=== PATIENT | male | born 1965 | race American Indian/Alaskan Native ===

== ENCOUNTER 2016-10-01 12:56 | Emergency (ER) | payer SELFPAY ==
--- NOTE | 2016-10-01 13:12 | Emergency Department Report ---
Chief Complaint: Hyperglycemia Stated Complaint: NAUSEA/VOMITING/DIABETIC Time Seen by Provider: 10/01/16 13:09 - HPI History of Present Illness: PT states his insulin is not working. PT's states she was out of town and when she returned this morning Vertice has lost 30lbs. Pt's states his blood sugar was running high. - ROS Review of Systems: + nausea + urinary frequency - pain - Exam Physical Exam: pt looks non toxic, appears nauseated. insulin pump noted. MSE screening note: Focused history and physical exam performed. Due to findings the following was ordered: lab work ED Disposition for MSE Condition: Stable
[2016-10-01 13:48] LABS: Basophils % (Auto) 0.4 % (0.0-1.8); Hematocrit 39.7 % (35.5-45.6); Mean Corpuscular HGB Conc 33 % (32-34); Mean Corpuscular Hemoglobin 29 pg (28-32); Mean Corpuscular Volume 87 fl (84-94); Platelet Count 222 K/mm3 (140-440); Red Blood Count 4.55 M/mm3 (3.65-5.03); Red Cell Distribution Width 15.5 % (13.2-15.2); White Blood Count 9.5 K/mm3 (4.5-11.0)
[2016-10-01 13:52] LABS: Albumin 3.8 g/dL (3.9-5); Albumin/Globulin Ratio 1.2 %; BUN/Creatinine Ratio 28.57; Bilirubin,Total 0.7 mg/dL (0.1-1.2); Calcium 9.6 mg/dL (8.4-10.2); Potassium 4.7 mmol/L (3.6-5.0); Total Protein 7.1 g/dL (6.3-8.2)
[2016-10-01 14:33] LABS: Bilirubin,Urine NEG (Negative); Blood,Urine NEG (Negative); Ketones,Urine TR mg/dL (Negative); Leukocyte Esterase,Urine NEG (Negative); Mucus,Urine FEW /HPF; Nitrite,Urine NEG (Negative); Urobilinogen,Urine < 2.0 mg/dL (<2.0)
[2016-10-02] MEDS ORDERED: NACL 0.9% 1000 ML 1,000 ML IV ONE (06:27)
[2016-10-02 07:02] LABS: BUN/Creatinine Ratio 25.88; Calcium 10.2 mg/dL (8.4-10.2); Chloride 97.2 mmol/L (98-107)
[2016-10-02 07:08] LABS: Potassium 5.8 mmol/L (3.6-5.0)
--- NOTE | 2016-10-02 08:11 | XRay Report ---
AP CHEST :10/01/16 12:56:00 CLINICAL: Hypoglycemia and weight loss. COMPARISON:None. FINDINGS: Normal heart and pulmonary vasculature. The lungs are normally expanded and clear. The bones and soft tissues are normal. IMPRESSION: Normal chest.
--- NOTE | 2016-10-02 08:22 | Emergency Department Report ---
ED General Adult HPI - General Chief complaint: Hyperglycemia Stated complaint: NAUSEA/VOMITING/DIABETIC Time Seen by Provider: 10/01/16 13:09 Source: patient, RN notes reviewed Mode of arrival: Wheelchair Limitations: No Limitations - History of Present Illness Initial comments: This is a 51-year-old male. He is previously unknown to me. His primary care doctor is at the [facility]. The patient has a history of high cholesterol and hypertension, and insulin-dependent diabetes, and has a programmable right-sided insulin pump. He reports that his fingersticks are typically less than 200. He reports that for the past 10 days, his fingersticks have been running in the 3 to 400s. He was initially nauseous and vomiting, but this has since resolved. His symptoms resolved with administration of IV fluids. He denies headache, neck pain, chest pain, abdominal pain, shortness of breath, irritative and obstructive urinary symptoms. He reports compliance with his outpatient medications, and he denies dietary indiscretions. -: Gradual Consistency: now resolved Improves with: medication Worsens with: none Associated Symptoms: nausea/vomiting (now resolved) - Related Data Home Medications Medication Instructions Recorded Confirmed Last Taken Aspirin EC [Aspirin Enteric Coated 81 mg PO QDAY 10/02/16 10/02/16 Unknown TAB] AtorvaSTATin [Lipitor] 40 mg PO QHS 10/02/16 10/02/16 Unknown Insulin Pump Syringe, 1.8 ml 1.25 unit SQ CONT 10/02/16 10/02/16 Unknown Lisinopril [Zestril] 20 mg PO QDAY 10/02/16 10/02/16 Unknown Allergies Allergy/AdvReac Type Severity Reaction Status Date / Time No Known Allergies Allergy Verified 10/01/16 13:14 ED Review of Systems ROS: Stated complaint: NAUSEA/VOMITING/DIABETIC Other details as noted in HPI Constitutional: malaise. denies: fever Eyes: denies: vision change ENT: denies: epistaxis Respiratory: denies: cough Cardiovascular: denies: chest pain Gastrointestinal: nausea, vomiting Genitourinary: as per HPI. denies: dysuria Musculoskeletal: as per HPI Skin: as per HPI Neurological: as per HPI, weakness ED Past Medical Hx - Past Medical History Previous Medical History?: Yes Hx Hypertension: Yes Hx Diabetes: Yes - Surgical History Past Surgical History?: Yes Additional Surgical History: neck - Social History Smoking Status: Never Smoker Substance Use Type: None - Medications Home Medications: Home Medications Medication Instructions Recorded Confirmed Last Taken Type Aspirin EC [Aspirin Enteric Coated 81 mg PO QDAY 10/02/16 10/02/16 Unknown History TAB] AtorvaSTATin [Lipitor] 40 mg PO QHS 10/02/16 10/02/16 Unknown History Insulin Pump Syringe, 1.8 ml 1.25 unit SQ CONT 10/02/16 10/02/16 Unknown History Lisinopril [Zestril] 20 mg PO QDAY 10/02/16 10/02/16 Unknown History ED Physical Exam - General Limitations: No Limitations General appearance: alert, in no apparent distress - Head Head exam: Present: atraumatic, normocephalic - Eye Eye exam: Present: normal appearance, EOMI. Absent: nystagmus - ENT ENT exam: Present: normal exam, normal orophraynx, mucous membranes moist, normal external ear exam - Neck Neck exam: Present: normal inspection, full ROM. Absent: tenderness, meningismus - Respiratory Respiratory exam: Present: normal lung sounds bilaterally. Absent: respiratory distress, wheezes, rales, rhonchi, stridor, chest wall tenderness, accessory muscle use, decreased breath sounds, prolonged expiratory - Cardiovascular Cardiovascular Exam: Present: regular rate, normal rhythm, normal heart sounds. Absent: bradycardia, tachycardia, irregular rhythm, systolic murmur, diastolic murmur, rubs, gallop - GI/Abdominal GI/Abdominal exam: Present: soft, normal bowel sounds. Absent: distended, tenderness, guarding, rebound, rigid, pulsatile mass - Rectal Rectal exam: Present: deferred - Extremities Exam Extremities exam: Present: normal inspection, normal capillary refill. Absent: calf tenderness - Back Exam Back exam: Present: normal inspection, full ROM. Absent: tenderness, CVA tenderness (R), CVA tenderness (L), muscle spasm, paraspinal tenderness, vertebral tenderness - Neurological Exam Neurological exam: Present: alert, oriented X3, normal gait, other (Extraocular movements intact. Tongue midline. No facial droop. Facial sensation intact to light touch in the V1, V2, V3 distribution bilaterally. 5 and 5 strength in 4 extremities.. Sensation is intact to light touch in 4 extremities.). Absent : motor sensory deficit - Psychiatric Psychiatric exam: Present: normal affect, normal mood - Skin Skin exam: Present: warm, dry, intact, normal color, other (insulin pump as noted in the right lower quadrant, no redness, pus or streaking). Absent: rash ED Course Vital Signs 10/01/16 10/02/16 10/02/16 13:09 05:06 06:18 Temperature 97.9 F 98.3 F Pulse Rate 80 119 H 88 Respiratory 18 20 10 L Rate Blood Pressure 173/96 Blood Pressure 185/109 [Right] O2 Sat by Pulse 100 100 97 Oximetry 10/02/16 10/02/16 10/02/16 06:31 07:01 07:30 Temperature Pulse Rate 79 98 H 91 H Respiratory 19 16 20 Rate Blood Pressure 194/102 194/102 167/96 Blood Pressure [Right] O2 Sat by Pulse 97 98 98 Oximetry 10/02/16 10/02/16 10/02/16 08:00 08:31 09:00 Temperature Pulse Rate 88 88 79 Respiratory 17 15 15 Rate Blood Pressure 175/103 175/103 147/86 Blood Pressure [Right] O2 Sat by Pulse 96 96 97 Oximetry - Reevaluation(s) Reevaluation #1: 10/02/16 09:03 Differential diagnosis: Diabetic ketoacidosis, hyperosmolar state, dehydration, renal insufficiency, UTI, pneumonia Assessment and plan: 51-year-old male with hyperglycemia, now resolved. He is afebrile with reassuring vital signs, with the exception of a symptomatically hypertensive/elevated blood pressure. This can be followed up by primary care doctor. His glucose has improved, a urinalysis and chest x-ray are not consistent with infectious etiology. Patient is most likely developing insulin resistance. Laboratory studies demonstrated mild renal insufficiency and hyperkalemia. A repeat basic metabolic panel is pending. Reevaluation #2: 10/02/16 09:05 repeat basic metabolic panel improved. Patient resting comfortably. Patient will be discharged. ED Medical Decision Making - Lab Data Result diagrams: 10/01/16 13:10/02/16 08:30 Vital Signs 10/01/16 10/02/16 10/02/16 13:09 05:06 06:18 Temperature 97.9 F 98.3 F Pulse Rate 80 119 H 88 Respiratory 18 20 10 L Rate Blood Pressure 173/96 Blood Pressure 185/109 [Right] O2 Sat by Pulse 100 100 97 Oximetry 10/02/16 10/02/16 10/02/16 06:31 07:01 07:30 Temperature Pulse Rate 79 98 H 91 H Respiratory 19 16 20 Rate Blood Pressure 194/102 194/102 167/96 Blood Pressure [Right] O2 Sat by Pulse 97 98 98 Oximetry 10/02/16 10/02/16 08:00 08:31 Temperature Pulse Rate 88 88 Respiratory 17 15 Rate Blood Pressure 175/103 175/103 Blood Pressure [Right] O2 Sat by Pulse 96 96 Oximetry Lab Results 10/01/16 10/01/16 10/01/16 Range/Units 13:05 13:17 13:17 WBC 9.5 (4.5-11.0) K/mm3 RBC 4.55 (3.65-5.03) M/mm3 Hgb 13.0 (11.8-15.2) gm/dl Hct 39.7 (35.5-45.6) % MCV 87 (84-94) fl MCH 29 (28-32) pg MCHC 33 (32-34) % RDW 15.5 H (13.2-15.2) % Plt Count 222 (140-440) K/mm3 Lymph % (Auto) 8.2 L (13.4-35.0) % [place] % (Auto) 6.9 (0.0-7.3) % Eos % (Auto) 0.0 (0.0-4.3) % Baso % (Auto) 0.4 (0.0-1.8) % Lymph # 0.8 L (1.2-5.4) K/mm3 [place] # 0.7 (0.0-0.8) K/mm3 Eos # 0.0 (0.0-0.4) K/mm3 Baso # 0.0 (0.0-0.1) K/mm3 Seg Neutrophils % 84.5 H (40.0-70.0) % Seg Neutrophils # 8.1 H (1.8-7.7) K/mm3 VBG pH (7.320-7.420) Sodium 140 (137-145) mmol/L Potassium 4.7 (3.6-5.0) mmol/L Chloride 100.0 (98-107) mmol/L Carbon Dioxide 27 (22-30) mmol/L Anion Gap 18 mmol/L BUN 40 H (9-20) mg/dL Creatinine 1.4 (0.8-1.5) mg/dL Estimated GFR 53 ml/min BUN/Creatinine Ratio 28.57 % Glucose 317 H (75-100) mg/dL POC Glucose 303 H (70-105) Calcium 9.6 (8.4-10.2) mg/dL Total Bilirubin 0.70 (0.1-1.2) mg/dL AST 33 (5-40) units/L ALT 34 (7-56) units/L Alkaline Phosphatase 83 (35-129) units/L Total Protein 7.1 (6.3-8.2) g/dL Albumin 3.8 L (3.9-5) g/dL Albumin/Globulin Ratio 1.2 % Lipase (13-60) units/L Urine Color (Yellow) Urine Turbidity (Clear) Urine pH (5.0-7.0) Ur Specific [place] (1.003-1.030) Urine Protein (Negative) mg/dL Urine Glucose (UA) (Negative) mg/dL Urine Ketones (Negative) mg/dL Urine Blood (Negative) Urine Nitrite (Negative) Urine Bilirubin (Negative) Urine Urobilinogen (<2.0) mg/dL Ur Leukocyte Esterase (Negative) Urine WBC (Auto) (0.0-6.0) /HPF Urine RBC (Auto) (0.0-6.0) /HPF Urine Mucus /HPF 10/01/16 10/01/16 10/01/16 Range/Units 13:17 13:17 14:04 WBC (4.5-11.0) K/mm3 RBC (3.65-5.03) M/mm3 Hgb (11.8-15.2) gm/dl Hct (35.5-45.6) % MCV (84-94) fl MCH (28-32) pg MCHC (32-34) % RDW (13.2-15.2) % Plt Count (140-440) K/mm3 Lymph % (Auto) (13.4-35.0) % [place] % (Auto) (0.0-7.3) % Eos % (Auto) (0.0-4.3) % Baso % (Auto) (0.0-1.8) % Lymph # (1.2-5.4) K/mm3 [place] # (0.0-0.8) K/mm3 Eos # (0.0-0.4) K/mm3 Baso # (0.0-0.1) K/mm3 Seg Neutrophils % (40.0-70.0) % Seg Neutrophils # (1.8-7.7) K/mm3 VBG pH 7.399 (7.320-7.420) Sodium (137-145) mmol/L Potassium (3.6-5.0) mmol/L Chloride (98-107) mmol/L Carbon Dioxide (22-30) mmol/L Anion Gap mmol/L BUN (9-20) mg/dL Creatinine (0.8-1.5) mg/dL Estimated GFR ml/min BUN/Creatinine Ratio % Glucose (75-100) mg/dL POC Glucose (70-105) Calcium (8.4-10.2) mg/dL Total Bilirubin (0.1-1.2) mg/dL AST (5-40) units/L ALT (7-56) units/L Alkaline Phosphatase (35-129) units/L Total Protein (6.3-8.2) g/dL Albumin (3.9-5) g/dL Albumin/Globulin Ratio % Lipase 19 (13-60) units/L Urine Color Yellow (Yellow) Urine Turbidity Clear (Clear) Urine pH 5.0 (5.0-7.0) Ur Specific [place] 1.014 (1.003-1.030) Urine Protein 100 mg/dl (Negative) mg/dL Urine Glucose (UA) >=500 (Negative) mg/dL Urine Ketones Tr (Negative) mg/dL Urine Blood Neg (Negative) Urine Nitrite Neg (Negative) Urine Bilirubin Neg (Negative) Urine Urobilinogen < 2.0 (<2.0) mg/dL Ur Leukocyte Esterase Neg (Negative) Urine WBC (Auto) 1.0 (0.0-6.0) /HPF Urine RBC (Auto) 2.0 (0.0-6.0) /HPF Urine Mucus Few /HPF 10/02/16 10/02/16 10/02/16 Range/Units 05:02 06:34 07:37 WBC (4.5-11.0) K/mm3 RBC (3.65-5.03) M/mm3 Hgb (11.8-15.2) gm/dl Hct (35.5-45.6) % MCV (84-94) fl MCH (28-32) pg MCHC (32-34) % RDW (13.2-15.2) % Plt Count (140-440) K/mm3 Lymph % (Auto) (13.4-35.0) % [place] % (Auto) (0.0-7.3) % Eos % (Auto) (0.0-4.3) % Baso % (Auto) (0.0-1.8) % Lymph # (1.2-5.4) K/mm3 [place] # (0.0-0.8) K/mm3 Eos # (0.0-0.4) K/mm3 Baso # (0.0-0.1) K/mm3 Seg Neutrophils % (40.0-70.0) % Seg Neutrophils # (1.8-7.7) K/mm3 VBG pH (7.320-7.420) Sodium 138 (137-145) mmol/L Potassium 5.8 H D (3.6-5.0) mmol/L Chloride 97.2 L (98-107) mmol/L Carbon Dioxide 27 (22-30) mmol/L Anion Gap 20 mmol/L BUN 44 H (9-20) mg/dL Creatinine 1.7 H (0.8-1.5) mg/dL Estimated GFR 51 ml/min BUN/Creatinine Ratio 25.88 % Glucose 369 H (75-100) mg/dL POC Glucose 418 H 283 H (70-105) Calcium 10.2 (8.4-10.2) mg/dL Total Bilirubin (0.1-1.2) mg/dL AST (5-40) units/L ALT (7-56) units/L Alkaline Phosphatase (35-129) units/L Total Protein (6.3-8.2) g/dL Albumin (3.9-5) g/dL Albumin/Globulin Ratio % Lipase (13-60) units/L Urine Color (Yellow) Urine Turbidity (Clear) Urine pH (5.0-7.0) Ur Specific [place] (1.003-1.030) Urine Protein (Negative) mg/dL Urine Glucose (UA) (Negative) mg/dL Urine Ketones (Negative) mg/dL Urine Blood (Negative) Urine Nitrite (Negative) Urine Bilirubin (Negative) Urine Urobilinogen (<2.0) mg/dL Ur Leukocyte Esterase (Negative) Urine WBC (Auto) (0.0-6.0) /HPF Urine RBC (Auto) (0.0-6.0) /HPF Urine Mucus /HPF - Radiology Data Radiology results: report reviewed, image reviewed X-ray of the chest is negative for acute disease Critical care attestation.: If time is entered above; I have spent that time in minutes in the direct care of this critically ill patient, excluding procedure time. ED Disposition Clinical Impression: Hyperglycemia Disposition: DC-01 TO HOME OR SELFCARE Is pt being admited?: No Does the pt Need Aspirin: No Condition: Stable Instructions: Diabetic Hyperglycemia (ED) Additional Instructions: Continue current outpatient medications. Follow up with your primary care physician within the next 7-10 days to have the insulin pump reevaluated/ reprogrammed. Please note that blood pressure was elevated in the emergency department. This should also be followed up by primary care doctor within the recommended timeframe. Long-term complications of hypertension/elevated blood pressure include stroke, heart attack, disability, , paralysis, loss of quality of life. Return to the ER right away with fevers, chills, chest pain, shortness of breath, confusion, nausea or vomiting, inability to tolerate liquid feeds. Referrals: PRIMARY CARE, [Primary Care Provider] - 3-5 Days MORRIS DUARTE MD [Staff Physician] - 3-5 Days
[2016-10-02 09:04] LABS: BUN/Creatinine Ratio 27.33; Calcium 9.9 mg/dL (8.4-10.2); Chloride 100.2 mmol/L (98-107); Potassium 4.8 mmol/L (3.6-5.0)
[2016-10-02 09:28] VITALS: BP 147/86
== END 2016-10-02 09:28 | disposition home or self-care (01) ==
LOC: ED 12:56
DX: E11.65 Type 2 diabetes mellitus with hyperglycemia (principal); I10 Essential (primary) hypertension; Z79.82 Long term (current) use of aspirin; Z79.4 Long term (current) use of insulin
CPT/HCPCS: 36415; 71010; 80048; 80053; 81001; 82805; 82962; 83690; 85025; 96360; 99284; J7030